=== PATIENT | female | born 1980 | race Caucasian/White ===

== ENCOUNTER → 2020-08-12 | Outpatient (CLI) | payer OTHER ==
--- NOTE | 2020-08-18 00:36 | ECWPNPC ---
PATIENT NAME: ALEX HOLLIDAY : 1980 GENDER: FEMALE VISIT DATE: 08/12/2020 DISCHARGE DATE: 08/12/20 1420 VISIT LOCKED DATE TIME: PHYSICIAN: MEGHAN SYKES PHYSICIAN PAGER NO: ACTIVE RESOURCE: MEGHAN SYKES REASON FOR APPOINTMENT 1. CHRONIC HEADACHES HISTORY OF PRESENT ILLNESS DEPRESSION SCREENING: PHQ-2 (2015 EDITION) LITTLE INTEREST OR PLEASURE IN DOING THINGS?NOT AT ALL FEELING DOWN, DEPRESSED, OR HOPELESS?NOT AT ALL TOTAL SCORE0 GENERAL: 39-YEAR-OLD FEMALE BEING REFERRED BY [facility], NEUROLOGY FOR PERSISTENT HEAD PAIN. 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 UNDERWENT CHEMOTHERAPY AND RADIATION AND FINISHED THAT THE BEGINNING OF 2019. STATES SHE HAS A CONSTANT PRESSURE PAIN OVER HER TEMPLES. SHE HAS A LARGE INCISION ON TOP OF THE SKULL. IT IS WELL-HEALED. HAS TRIED MEDICATIONS FOR CHRONIC MIGRAINE HEADACHE I.E. TOPAMAX AND AMOVIG WITH EITHER SIDE EFFECTS OR NO IMPROVEMENT IN PAIN. STATES SHE HAD IMPROVEMENT WITH" PRESSURE PAIN" WITH USE OF OXYCODONE OF WHICH NEUROLOGY HAD HER ON FOR 3 MONTHS. - - -. FALL RISK SCREENING: SCREENING : NO FALLS REPORTED IN THE LAST YEAR , : NO FALLS REPORTED IN THE LAST YEAR. PAIN SCREENING: PATIENT HAS A COMPLAINT OF ACUTE OR CHRONIC PAIN :YES LOCATION OF PAIN:HEAD INTENSITY OF PAIN (SCALE OF 1 TO 10):10 WHAT DOES YOUR PAIN FEEL LIKE:OTHER PRESSURE DURATION:CONTINOUS, CONSTANT, ALL DAY PAIN IS INCREASED BY:ACTIVITIES PAIN IS DECREASED BY:USE OF PAIN MEDICATIONS NURSING NOTE: - - -. PAIN CENTER INTAKE QUESTIONS: DO YOU HAVE A HISTORY OF MRSA? :NO DO YOU TAKE A BLOOD THINNERS? :NO DO YOU HAVE ANY BLEEDING DISORDERS? :NO ANY NEW NUMBNESS OR WEAKNESS IN YOUR LEGS OR ARMS? :YES THE WHOLE RIGHT SIDE OF BODY GET ONCE IN A WHILE ANY PACEMAKER,DEFIBRILLATOR, OR DORSAL COLUMN STIMULATOR? :NO DO YOU HAVE ANY RASHES OR OPEN SORES? :NO ARE YOU ALLERGIC TO IV DYE? :NO ARE YOU DIABETIC? :NO ANY NEW PROBLEMS WITH YOUR MEDICATIONS? :NO HAVE YOU RECEIVED A VACCINE IN THE PAST 30 DAYS? :NO DO YOU PLAN TO RECEIVE A VACCINE IN THE NEXT 21 DAYS? :NO DO YOU NEED ANY PRESCRIPTION? :NO DO YOU TAKE ANY IMMUNOSUPPRESSIVE MEDICATIONS? :NO CURRENT MEDICATIONS TAKING SYNTHROID 50 MCG TABLET 1 TABLET IN THE MORNING ON AN EMPTY STOMACH ORALLY ONCE A DAY TAKING MECLIZINE HCL 25 MG TABLET CHEWABLE 1 TABLET NEEDED ORALLY ONCE A DAY, NOTES: NEEDED N CHECK TAKING VITAMIN B12 100 MCG TABLET DIRECTED ORALLY TAKING LEVETIRACETAM 1000 MG TABLET 1500 MG 1 TABLET ORALLY TWICE A DAY TAKING LACOSAMIDE 150 MG TABLET 1 TABLET ORALLY TWICE A DAY TAKING NORTRIPTYLINE HCL 25 MG CAPSULE 1 CAPSULE ORALLY ONCE A DAY TAKING METOCLOPRAMIDE HCL 5 MG TABLET 1 TABLET BEFORE MEALS ORALLY TWICE A DAY, NOTES: CHECK DOSE TAKING DEPAKOTE ER 500 MG TABLET EXTENDED RELEASE 24 HOUR 1 TABLET ORALLY TWICE A DAY TAKING CELEXA 40 MG TABLET 0.5 TABLET ORALLY ONCE A DAY TAKING LIPITOR 20 MG TABLET 1 TABLET ORALLY ONCE A DAY TAKING MECLIZINE HCL 50 MG TABLET 10MG DIRECTED ORALLY FOUR TIMES DAILY TAKING ONDANSETRON HCL 8 MG TABLET 1 TABLET NEEDED ORALLY TWICE A DAY MEDICATION LIST REVIEWED AND RECONCILED WITH THE PATIENT PAST MEDICAL HISTORY DEPRESSION HYPERTHYROIDISM BRAIN CANCER STAGE 2 HIGH BLOOD PRESSSURE VITAMIN D DEFICIENCY ASTHMA HYPOTHERMIA ALLERGIES SEASONAL SURGICAL HISTORY D&C UPPER ENDOSCOPY BRAIN BIOPSY AT [facility] BY DR DAVIS CONSISTENT WITH GLIOMA 03/06/2019 RADIATION AND TEMODAR FAMILY HISTORY FATHER: ALIVE MOTHER: ALIVE SIBLINGS: ALIVE SON(S): UNKNOWN DAUGHTER(S): ALIVE 1 BROTHER(S) - HEALTHY. 1DAUGHTER(S) - HEALTHY. FATHER WITH RENAL STONES, DIABETES, HEART DISEASE, MOTHER WITH DIABETES. SOCIAL HISTORY GENERAL: TOBACCO USE ARE YOU A:CURRENT SMOKER HOW MANY CIGARETTES A DAY DO YOU SMOKE?5 OR LESS PATIENT COUNSELED ON THE DANGERS OF TOBACCO USE AND URGED TO QUIT:08/12/2020 LATEX QUESTIONNAIRE LATEX ALLERGY : HAVE YOU EVER DEVELOPED ANY TYPE OF REACTION AFTER HANDLING LATEX PRODUCTS SUCH RUBBER GLOVES, CONDOMS, DIAPHRAGMS, BALLOONS, SOCKS, OR UNDERWEAR?NO LATEX ALLERGY : HAVE YOU EVER DEVELOPED ANY TYPE OF REACTION DURING OR AFTER DENTAL APPOINTMENT, VAGINAL/RECTAL EXAMINATION, SURGICAL PROCEDURE, OR ANY OTHER EXPOSURE?NO LATEX RISK : HAVE YOU EVER HAD ANY DIFFICULTY BREATHING OR HIVES AFTER EATING OR HANDLING ANY FRUITS, OR VEGETABLES; SUCH KIWI, BANANAS, STONE FRUITS, OR CHESTNUTSNO LATEX RISK : DO YOU HAVE A PREVIOUS PERSONAL HISTORY OF MORE THAN NINE SURGERIES, SPINA BIFIDA, OR REPEATED CATHERIZATIONS? NO LATEX RISK : ARE YOU FREQUENTLY EXPOSED TO LATEX PRODUCTS IN YOUR OCCUPATION?NO DATE ASKED : 08/12/2020 ALCOHOL USE: NO. RECREATIONAL DRUG USE DRUG USE?YES LANGUAGE LANGUAGES SPOKEN:GUINEAN LEARNING BARRIERS / SPECIAL NEEDS CHANGE FROM LAST VISIT?YES BARRIERS TO LEARNING?NO HEARING IMPAIRED?NO IN RIGHT EAR HEARING LOST VISION IMPAIRED?NO COGNITIVELY IMPAIRED?NO READINESS TO LEARN?YES LEARNING PREFERENCES?NO LEARNING CAPABILITIES PRESENT?YES EMOTIONAL BARRIERS?NO SPECIAL DEVICES?NO ENGINE MECHANIC NEEDED?NO HOSPITALIZATION/MAJOR DIAGNOSTIC PROCEDURE BRAIN SURG REVIEW OF SYSTEMS CONSTITUTIONAL: ANY RECENT FEVER NO . CHILLS NO . WEIGHT CHANGE OF UNKNOWN REASONS NO . GASTROENTEROLOGY: NEW UNEXPLAINABLE CHANGES IN BOWEL CONTROL NO . CONSTIPATION NO . GENITOURINARY: ANY NEW CHANGE IN BLADDER CONTROL? NO . NEUROLOGY: NEW ONSET DIZZINESS OR NEUROLOGICAL CHANGES NOT MENTIONED NO . NEW NUMBNESS OR PAIN PATTERNS NOT MENTIONED AND PERTINENT TO TODAY'S VISIT NO . CARDIOLOGY: NEW CHEST PRESSURE NO . PATIENT DENIES NO . RESPIRATORY: UNEXPLAINABLE COUGH NO . NEW SHORTNESS OF BREATH NO . VITAL SIGNS WT 175 LBS, HT 5'4, BMI 34.17 INDEX, BP 101/65 MM HG, HR 18 /MIN, RR 85 /MIN, TEMP 97.6 F, OXYGEN SAT % 98%, SAFE IN ENV? (Y/N) YEST.MONA ANTHONY. EXAMINATION GENERAL EXAMINATION: GENERALNO ACUTE DISTRESS, WELL NOURISHED AND HYDRATED. PSYCHAPPROPRIATE MOOD AND AFFECT . FACE:UNREMARKABLE. NECK:NO LYMPHADENOPATHY, SUPPLE, NO THYROMEGALLY. LUNGS:CLEAR TO AUSCULTATION BILATERALLY, NO WHEEZES, RHONCHI, RALES. HEART:NO MURMURS, REGULAR RATE AND RHYTHM. MUSCULOSKELETAL:NORMAL RANGE OF MOTION. NEUROLOGIC EXAM:INTACT, NO DEFICITS. ASSESSMENTS HEADACHE, UNSPECIFIED - R51.9 (PRIMARY) OTHER CHRONIC PAIN - G89.29 TREATMENT HEADACHE, UNSPECIFIED START PERCOCET TABLET, 5-325 MG, 1 TABLET NEEDED, ORALLY, Q8H PRN MDD3, 30 DAYS, 90, REFILLS 0 NOTES: ADVISED TO START PERCOCET 5/325 ONE TABLET UP TO 3 TIMES A DAY NEEDED FOR SEVERE HEAD PAIN. I DID ADVISE HER NOT TO USE THIS EVERY DAY 3 TIMES EVERY SINGLE DAY TO AVOID TOLERANCE AND OTHER SIDE EFFECTS OF CHRONIC DAILY OPIOID EXPOSURE. IF PATIENT DEMONSTRATES IMPROVEMENT WITH ABILITY TO TOLERATE ACTIVITIES I.E. WALKING WITH HER 9-YEAR-OLD DAUGHTER WE WILL CONTINUE THIS TYPE OF THERAPY. SHE WAS ADVISED ON CLINIC POLICY IN REGARDS TO NARCOTIC USE AND AGREES TO BE SEEN ON A REGULAR BASIS. NARCOTIC AGREEMENT IS REVIEWED AND SIGNED. PATIENT VOICES UNDERSTANDING. PRINTED INFORMATION ON NEW MEDICATION FOR PATIENT DEVYN GABRIELLE. PROCEDURE CODES FA211 ESTABILISHED PATIENT [facility] CHARGE DISPOSITION & COMMUNICATION FOLLOW UP 2 MONTHS (REASON: URINE TOXICOLOGY/MEDICATION MANAGEMENT) ELECTRONICALLY SIGNED BY ELEAZAR KENNY ON 08/17/2020 AT 02:15 PM EDT DISCLAIMER : THIS IS A VISIT SUMMARY EXTRACTED FROM THE [employer] CHART. IT IS NOT A COPY OF THE [employer] PROGRESS NOTE. SAMIR
== END ==
LOC: M PAIN 13:00
PROVIDERS: ATTEND Nurse Practitioner Family
DX: G89.29 Other chronic pain (principal); R51.9 Headache, unspecified; F32.9 Major depressive disorder, single episode, unspecified; E55.9 Vitamin D deficiency, unspecified; J45.909 Unspecified asthma, uncomplicated; F17.210 Nicotine dependence, cigarettes, uncomplicated; Z79.899 Other long term (current) drug therapy

== ENCOUNTER → 2020-10-12 | Outpatient (CLI) | payer OTHER ==
--- NOTE | 2020-10-14 04:36 | ECWPNPC ---
PATIENT NAME: ALEX HOLLIDAY : 1980 GENDER: FEMALE VISIT DATE: 10/12/2020 DISCHARGE DATE: 10/12/20 1451 VISIT LOCKED DATE TIME: PHYSICIAN: MEGHAN SYKES PHYSICIAN PAGER NO: ACTIVE RESOURCE: MEGHAN SYKES REASON FOR APPOINTMENT 1. URINE TOXICOLOGY/MEDICATION MANAGEMENT HISTORY OF PRESENT ILLNESS GENERAL: HERE FOR F/U OF CHRONIC HEAD PAIN WITH HISTORY OF CRANIAL SURGERY.HAS RESPONDED WELL TO USE OF OXYCODONE 5/325 3 TABS DAILY AND REPORTS LESS HEADACHES AND IMPROVEMENT WITH TOLERATING ACTIVITIES IE: PLAYING WITH DAUGHTER.DENIES ADVERSE SIDE EFFECTS. -. FALL RISK SCREENING: SCREENING : NO FALLS REPORTED IN THE LAST YEAR. PAIN SCREENING: PATIENT HAS A COMPLAINT OF ACUTE OR CHRONIC PAIN :YES LOCATION OF PAIN:HEAD INTENSITY OF PAIN (SCALE OF 1 TO 10):6 WHAT DOES YOUR PAIN FEEL LIKE:ACHING, BURNING, SHARP, STABBING, TENDER, THROBBING DURATION:CONTINOUS, CONSTANT, ALL DAY PAIN IS INCREASED BY:ACTIVITIES, OTHERS LIGHT AND HEAT PAIN IS DECREASED BY:USE OF PAIN MEDICATIONS NURSING NOTE: -. PAIN CENTER INTAKE QUESTIONS: DO YOU HAVE A HISTORY OF MRSA? :NO DO YOU TAKE A BLOOD THINNERS? :NO DO YOU HAVE ANY BLEEDING DISORDERS? :NO ANY NEW NUMBNESS OR WEAKNESS IN YOUR LEGS OR ARMS? :YES THE WHOLE RIGHT SIDE OF BODY GET ONCE IN A WHILE ANY PACEMAKER,DEFIBRILLATOR, OR DORSAL COLUMN STIMULATOR? :NO DO YOU HAVE ANY RASHES OR OPEN SORES? :NO ARE YOU ALLERGIC TO IV DYE? :NO ARE YOU DIABETIC? :NO ANY NEW PROBLEMS WITH YOUR MEDICATIONS? :NO HAVE YOU RECEIVED A VACCINE IN THE PAST 30 DAYS? :NO DO YOU PLAN TO RECEIVE A VACCINE IN THE NEXT 21 DAYS? :NO DO YOU NEED ANY PRESCRIPTION? :NO DO YOU TAKE ANY IMMUNOSUPPRESSIVE MEDICATIONS? :NO CURRENT MEDICATIONS TAKING SYNTHROID 50 MCG TABLET 1 TABLET IN THE MORNING ON AN EMPTY STOMACH ORALLY ONCE A DAY TAKING MECLIZINE HCL 25 MG TABLET CHEWABLE 2 TABLET NEEDED ORALLY FOUR TIMES A DAY, NOTES: NEEDED N CHECK TAKING VITAMIN B12 100 MCG TABLET DIRECTED ORALLY TAKING LEVETIRACETAM 1000 MG TABLET 1500 MG 1 TABLET ORALLY TWICE A DAY TAKING LACOSAMIDE 150 MG TABLET 1 TABLET ORALLY TWICE A DAY TAKING NORTRIPTYLINE HCL 25 MG CAPSULE 1 CAPSULE ORALLY ONCE A DAY TAKING METOCLOPRAMIDE HCL 5 MG TABLET 1 TABLET BEFORE MEALS ORALLY TWICE A DAY, NOTES: CHECK DOSE TAKING DEPAKOTE ER 500 MG TABLET EXTENDED RELEASE 24 HOUR 1 TABLET ORALLY TWICE A DAY TAKING CELEXA 40 MG TABLET 0.5 TABLET ORALLY ONCE A DAY TAKING LIPITOR 20 MG TABLET 1 TABLET ORALLY ONCE A DAY TAKING MECLIZINE HCL 50 MG TABLET 10MG DIRECTED ORALLY FOUR TIMES DAILY TAKING ONDANSETRON HCL 8 MG TABLET 1 TABLET NEEDED ORALLY TWICE A DAY TAKING PERCOCET 5-325 MG TABLET 1 TABLET NEEDED ORALLY Q8H PRN MDD3 MEDICATION LIST REVIEWED AND RECONCILED WITH THE PATIENT PAST MEDICAL HISTORY DEPRESSION HYPERTHYROIDISM BRAIN CANCER STAGE 2 HIGH BLOOD PRESSSURE VITAMIN D DEFICIENCY ASTHMA HYPOTHERMIA ALLERGIES SEASONAL SOCIAL HISTORY GENERAL: TOBACCO USE ARE YOU A:CURRENT SMOKER ARE YOU INTERESTED IN QUITTING?THINKING ABOUT QUITTING COUNSELED THE PATIENT ON SMOKING CESSATION, EDUCATION [id number]/02/2021 HOW MANY CIGARETTES A DAY DO YOU SMOKE?5 OR LESS PATIENT COUNSELED ON THE DANGERS OF TOBACCO USE AND URGED TO QUIT:08/12/2020 LATEX QUESTIONNAIRE LATEX ALLERGY : HAVE YOU EVER DEVELOPED ANY TYPE OF REACTION AFTER HANDLING LATEX PRODUCTS SUCH RUBBER GLOVES, CONDOMS, DIAPHRAGMS, BALLOONS, SOCKS, OR UNDERWEAR?NO LATEX ALLERGY : HAVE YOU EVER DEVELOPED ANY TYPE OF REACTION DURING OR AFTER DENTAL APPOINTMENT, VAGINAL/RECTAL EXAMINATION, SURGICAL PROCEDURE, OR ANY OTHER EXPOSURE?NO LATEX RISK : HAVE YOU EVER HAD ANY DIFFICULTY BREATHING OR HIVES AFTER EATING OR HANDLING ANY FRUITS, OR VEGETABLES; SUCH KIWI, BANANAS, STONE FRUITS, OR CHESTNUTSNO LATEX RISK : DO YOU HAVE A PREVIOUS PERSONAL HISTORY OF MORE THAN NINE SURGERIES, SPINA BIFIDA, OR REPEATED CATHERIZATIONS? NO LATEX RISK : ARE YOU FREQUENTLY EXPOSED TO LATEX PRODUCTS IN YOUR OCCUPATION?NO DATE ASKED : 10/12/2020 ALCOHOL USE: NO. RECREATIONAL DRUG USE DRUG USE?NO LANGUAGE LANGUAGES SPOKEN:ICELANDIC LEARNING BARRIERS / SPECIAL NEEDS CHANGE FROM LAST VISIT?YES BARRIERS TO LEARNING?NO HEARING IMPAIRED?NO IN RIGHT EAR HEARING LOST VISION IMPAIRED?NO COGNITIVELY IMPAIRED?NO READINESS TO LEARN?YES LEARNING PREFERENCES?NO LEARNING CAPABILITIES PRESENT?YES EMOTIONAL BARRIERS?NO SPECIAL DEVICES?YES :CANE, WALKER PERSONNEL SECURITY ASSISTANT NEEDED?NO REVIEW OF SYSTEMS CONSTITUTIONAL: ANY RECENT FEVER NO . CHILLS NO . WEIGHT CHANGE OF UNKNOWN REASONS NO . GASTROENTEROLOGY: NEW UNEXPLAINABLE CHANGES IN BOWEL CONTROL NO . CONSTIPATION NO . GENITOURINARY: ANY NEW CHANGE IN BLADDER CONTROL? NO . NEUROLOGY: NEW ONSET DIZZINESS OR NEUROLOGICAL CHANGES NOT MENTIONED NO . NEW NUMBNESS OR PAIN PATTERNS NOT MENTIONED AND PERTINENT TO TODAY'S VISIT NO . CARDIOLOGY: NEW CHEST PRESSURE NO . PATIENT DENIES NO . RESPIRATORY: UNEXPLAINABLE COUGH NO . NEW SHORTNESS OF BREATH NO . VITAL SIGNS WT 175 LBS, HT 5'4, BMI 34.17 INDEX, BP 116/70 MM HG, HR 18 /MIN, RR 85 /MIN, TEMP 97.5 F, OXYGEN SAT % 96%, SAFE IN ENV? (Y/N) YEST.MONA ANTHONY. EXAMINATION GENERAL EXAMINATION: GENERALAWAKE,ALERT ,PLEASANT . PSYCHAFFECT NORMAL . LUNGS:LUNG RG ARE CLEAR TO AUSCULTATION BILATERALLY. GOOD MOVEMENT OF AIR . HEART:S1, S2 IN A REGULAR RATE AND RHYTHM. NO SIGNIFICANT MURMURS, RUBS OR GALLOPS NOTED . ASSESSMENTS CHRONIC PRESCRIPTION OPIATE USE - Z79.891 (PRIMARY) HEADACHE, UNSPECIFIED - R51.9 TREATMENT CHRONIC PRESCRIPTION OPIATE USE CONTINUE PERCOCET TABLET, 5-325 MG, 1 TABLET NEEDED, ORALLY, Q8H PRN MDD3, 30 DAYS, 90 LAB: URINE TEST GROUP TIMMY DUNN 10/12/2020 2:41:50 PM > LAST DOSE : PERCOCET 10/12/2020 @ 10:30AM PATIENT MEDICATION INVENTORY #1PRESCRIPTON #[id number] OF RX ON 1DRUG AND STRENGTHOXYCODONE-ACETAMINOPHEN 5-325MGFORMULATIONTABVERIFIED DRUG IDENTITYMiley THAPA RN, DEVYN [id number] NOTES: FORMAL PILL COUNT/IDENTIFICATION TODAY. PROCEDURE CODES FA211 ESTABILISHED PATIENT [facility] FACILITY CHARGE DISPOSITION & COMMUNICATION FOLLOW UP 2 MONTHS (REASON: MED MGMNT/REVIEW UTOX) ELECTRONICALLY SIGNED BY ELEAZAR KENNY ON 10/13/2020 AT 02:52 PM EDT DISCLAIMER : THIS IS A VISIT SUMMARY EXTRACTED FROM THE [employer] CHART. IT IS NOT A COPY OF THE [employer] PROGRESS NOTE. MTDD
== END ==
LOC: M PAIN 13:45
PROVIDERS: ATTEND Nurse Practitioner Family
DX: Z51.81 Encounter for therapeutic drug level monitoring (principal); Z79.891 Long term (current) use of opiate analgesic; R51.9 Headache, unspecified; F32.9 Major depressive disorder, single episode, unspecified; E55.9 Vitamin D deficiency, unspecified; J45.909 Unspecified asthma, uncomplicated; R03.0 Elevated blood-pressure reading, without diagnosis of hypertension; Z79.899 Other long term (current) drug therapy

== ENCOUNTER → 2020-12-12 | Outpatient (CLI) | payer OTHER | LOC: M PAIN 15:00 | PROVIDERS: ATTEND Nurse Practitioner Family | DX: R51.9 Headache, unspecified (principal); F32.9 Major depressive disorder, single episode, unspecified; E55.9 Vitamin D deficiency, unspecified; J45.909 Unspecified asthma, uncomplicated; R03.0 Elevated blood-pressure reading, without diagnosis of hypertension; F17.210 Nicotine dependence, cigarettes, uncomplicated; Z79.891 Long term (current) use of opiate analgesic; Z79.899 Other long term (current) drug therapy ==

== ENCOUNTER → 2021-05-03 | Outpatient (CLI) | payer OTHER | LOC: M PAIN 13:30 | PROVIDERS: ATTEND Anesthesiology | DX: R51.9 Headache, unspecified (principal); F32.A Depression, unspecified; E05.90 Thyrotoxicosis, unspecified without thyrotoxic crisis or storm; E55.9 Vitamin D deficiency, unspecified; J45.909 Unspecified asthma, uncomplicated; F17.210 Nicotine dependence, cigarettes, uncomplicated; Z79.891 Long term (current) use of opiate analgesic; Z79.899 Other long term (current) drug therapy ==

== ENCOUNTER → 2021-08-24 | Outpatient (CLI) | payer OTHER | LOC: M PAIN 14:15 | PROVIDERS: ATTEND Nurse Practitioner Family | DX: R51.9 Headache, unspecified (principal); F32.A Depression, unspecified; E05.90 Thyrotoxicosis, unspecified without thyrotoxic crisis or storm; E55.9 Vitamin D deficiency, unspecified; J45.909 Unspecified asthma, uncomplicated; F17.210 Nicotine dependence, cigarettes, uncomplicated; C71.9 Malignant neoplasm of brain, unspecified; Z92.21 Personal history of antineoplastic chemotherapy; Z79.891 Long term (current) use of opiate analgesic; Z79.899 Other long term (current) drug therapy ==

== ENCOUNTER → 2021-12-14 | Outpatient (CLI) | payer OTHER | LOC: M PAIN 14:00 | PROVIDERS: ATTEND Nurse Practitioner Family | DX: R51.9 Headache, unspecified (principal); G89.29 Other chronic pain; E03.9 Hypothyroidism, unspecified; I10 Essential (primary) hypertension; J45.909 Unspecified asthma, uncomplicated; F17.210 Nicotine dependence, cigarettes, uncomplicated; Z79.890 Hormone replacement therapy; Z79.899 Other long term (current) drug therapy ==

== ENCOUNTER → 2022-04-24 | Outpatient (CLI) | payer OTHER | LOC: M PAIN 14:15 | PROVIDERS: ATTEND Nurse Practitioner Family | DX: R51.9 Headache, unspecified (principal); G89.29 Other chronic pain; I10 Essential (primary) hypertension; J45.909 Unspecified asthma, uncomplicated; F17.210 Nicotine dependence, cigarettes, uncomplicated; Z86.59 Personal history of other mental and behavioral disorders; Z79.899 Other long term (current) drug therapy ==

== ENCOUNTER → 2022-08-20 | Outpatient (CLI) | payer OTHER | LOC: M PAIN 14:15 | PROVIDERS: ATTEND Nurse Practitioner Family | DX: Z51.81 Encounter for therapeutic drug level monitoring (principal); R51.9 Headache, unspecified; C71.9 Malignant neoplasm of brain, unspecified; F32.A Depression, unspecified; E05.90 Thyrotoxicosis, unspecified without thyrotoxic crisis or storm; E55.9 Vitamin D deficiency, unspecified; J45.909 Unspecified asthma, uncomplicated; F17.210 Nicotine dependence, cigarettes, uncomplicated; Z79.890 Hormone replacement therapy; Z79.899 Other long term (current) drug therapy; Z79.891 Long term (current) use of opiate analgesic ==

== ENCOUNTER → 2022-12-11 | Outpatient (CLI) | payer OTHER | LOC: M PAIN 15:15 | PROVIDERS: ATTEND Nurse Practitioner Family | DX: R51.9 Headache, unspecified (principal); G89.29 Other chronic pain; F32.A Depression, unspecified; E55.9 Vitamin D deficiency, unspecified; J45.909 Unspecified asthma, uncomplicated; C71.9 Malignant neoplasm of brain, unspecified; F17.210 Nicotine dependence, cigarettes, uncomplicated; Z79.890 Hormone replacement therapy; Z79.891 Long term (current) use of opiate analgesic; Z79.899 Other long term (current) drug therapy ==